=== PATIENT | male | born 1990 | race Two or more races ===

== ENCOUNTER 2019-09-20 20:50 | Emergency (ER) | payer OTHER ==
[2019-09-20] MEDS ORDERED: Lidocaine 1% (PF) 30 ML VIAL ONE (21:31)
[2019-09-20] MEDS ORDERED: Bacitracin 1 PK ONE (21:31)
[2019-09-20] MEDS ORDERED: Ibuprofen 200 MG TAB ONE (21:31)
[2019-09-20] MEDS ORDERED: traMADol HCl 50 MG TAB ONE (21:31)
--- NOTE | 2019-09-21 06:34 | RAD ---
RIGHT HAND 3 VIEWS: HISTORY: Right hand injury. FINDINGS: There are no signs of acute fracture or dislocation. Some slight deformity to the 5th metacarpal may be sequelae of an old injury. IMPRESSION: No acute findings. POS: [facility]
--- NOTE | 2019-09-21 06:35 | RAD ---
LEFT HAND 3 VIEWS: HISTORY: Hand injury. FINDINGS: There is an obliquely oriented fracture of the base of the 5th metacarpal. Fracture may have an intr aarticular component. It is difficult to assess on these views. IMPRESSION: Somewhat obliquely oriented base of 5th metacarpal fracture, probably with an intraarticular componen t to the fracture. POS: [facility]
== END 2019-09-20 23:22 | disposition still patient (30) ==
LOC: NAV ERS 20:50
DX: S62.317A Displaced fracture of base of fifth metacarpal bone, left hand, initial encounter for closed fracture (principal); F41.9 Anxiety disorder, unspecified; F31.9 Bipolar disorder, unspecified; F20.9 Schizophrenia, unspecified; Z87.891 Personal history of nicotine dependence; Z79.899 Other long term (current) drug therapy; S61.412A Laceration without foreign body of left hand, initial encounter; W22.8XXA Striking against or struck by other objects, initial encounter
CPT/HCPCS: 12001; J2001